=== PATIENT | male | born 1985 | race Caucasian/White ===

== ENCOUNTER 2020-05-01 14:21 | Emergency (ER) | payer MEDICAID ==
[~2020-05-01] VITALS: Ht 172.7 cm; Wt 77.1 kg
--- NOTE | 2020-05-01 15:01 | NUR ---
CALLED FOR TRIAGE, UNABLE TO FIND PT AT THIS TIME.
--- NOTE | 2020-05-01 15:21 | NUR ---
CALLED FOR TRIAGE, PT STATES HE IS IN THE BATHROOM.
[2020-05-01 15:22] VITALS: BP_SYST 142
--- NOTE | 2020-05-01 15:24 | NUR ---
Patient triaged and placed in waiting room. VSS and patient appears in no acute distress at this time. Accompanied by SELF, awaiting available bed, and MD notified of need for MSE.
--- NOTE | 2020-05-01 16:16 | NUR ---
TAKEN TO RADIOLOGY VIA [facility]
--- NOTE | 2020-05-01 17:01 | NUR ---
CALLED TO COME BACK TO BED #7, UNABLE TO LOCATE PT IN WAITING ROOM OR OUTSIDE
--- NOTE | 2020-05-01 17:12 | NUR ---
CALLED TO COME TO ROOM 7, UNABLE TO FIND PT IN WAITING ROOM OR OUTSIDE.
--- NOTE | 2020-05-01 17:16 | NUR ---
BROUGHT BACK TO BED #7 AND REPORT GIVEN TO ROXANA
--- NOTE | 2020-05-01 17:20 | NUR ---
Patient arrived via POV, AAOx4, and ambulatory with limping gait. Patient states for the past day he has had limited vision in his left eye, described as foggy. He notes sensitivity to light, with clear drainage, and no crusting. 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 He states he may have grease or something in his eye. Patient does not wear contact lenses. Will continue to follow up and monitor.
--- NOTE | 2020-05-01 17:22 | NUR ---
Eye acuity: left 30/200 right 20/30
--- NOTE | 2020-05-01 17:26 | NUR ---
ER at bedside examining patient.
--- NOTE | 2020-05-01 18:00 | NUR ---
Left eye irrigated with 400 cc normal saline with use of Morgans Lens. Topical anesthetic instilled prior to placement of Morgans Lens. Patient tolerated well.
[2020-05-01 18:04] VITALS: BP_SYST 140
--- NOTE | 2020-05-01 18:04 | NUR ---
Patient given written and verbal discharge instructions and verbalizes understanding. ER MD discussed with patient the results and treatment provided. Patient in stable condition. ID arm band removed. Rx of Tylenol and Tobramycin ointment given. Patient educated on pain management and to follow up with PMD. Pain Scale 4/10. Opportunity for questions provided and answered. Medication side effect fact sheet provided. Patient given information for [facility] eye clinic.
== END 2020-05-01 18:04 | disposition home or self-care (01) ==
LOC: SED 14:21
DX: T15.12XA Foreign body in conjunctival sac, left eye, initial encounter (principal); S93.602A Unspecified sprain of left foot, initial encounter; H53.8 Other visual disturbances; F15.10 Other stimulant abuse, uncomplicated; X58.XXXA Exposure to other specified factors, initial encounter; Y93.39 Activity, other involving climbing, rappelling and jumping off; Y92.89 Other specified places as the place of occurrence of the external cause; Y99.8 Other external cause status
CPT/HCPCS: 73630; 99284; J7030